=== PATIENT | female | born 1960 | race Caucasian/White ===

== ENCOUNTER → 2017-01-07 | Outpatient (CLI) | payer OTHER ==
[2015-11-11 10:46] VITALS: BP 117/74
[~2017-01-07] MED LIST: ASPI81TA44 PO; BUPR150T8 PO; CALC-31 PO; CEFU250T PO; CIPR500T94 PO; GABA-586 PO; INSU100C4 SQ; INSU100I13 SQ; INSU100I17 SQ; LAMO150T PO; LIRA0.6P2 SQ; METF10002 PO; METF500T4 PO; PARO40TA3 PO; Potassium Chloride PO; SUCR1TAB PO; SUCR1TAB35 PO; SULF1TAB24 PO; ZOLP10TA4 PO
--- NOTE | 2017-01-07 16:22 | RAD ---
CT scan of the chest without contrast 01/07/2017 Clinical history: History of pulmonary nodules with cough. Technique: Unenhanced, contiguous, 1 mm axial sections were obtained to the chest and upper abdomen. Findings: Comparison study is dated 10/31/2015. Mild atherosclerotic calcification of the thoracic aorta and its branches is noted. The thoracic aorta tapers normally. The heart is normal in size. Scattered coronary artery calcifications are seen. Small calcified hilar and mediastinal lymph nodes are noted. Multiple small calcified granulomas are seen scattered throughout both lungs. These measure 2 to 3 mm in size. Several noncalcified pulmonary nodules are seen scattered throughout both lungs particularly involving the right lower lobe. These measure 1 mm to 4 mm in size. They likely represent noncalcified granulomas. They have not significantly changed since the previous study. No new pulmonary nodule seen. No acute pulmonary infiltrate is noted. No pleural effusion or pneumothorax is seen. Images through the upper abdomen demonstrate no acute abnormality. Degenerative changes are seen involving the thoracic spine. Impression: Stable CT appearance of the pulmonary nodules as outlined above. No acute abnormality is seen.
== END | disposition home or self-care (01) ==
LOC: CT 12:51
PROVIDERS: ATTEND Physician Assistant
DX: R91.8 Other nonspecific abnormal finding of lung field (principal); E11.65 Type 2 diabetes mellitus with hyperglycemia; I70.0 Atherosclerosis of aorta; K21.9 Gastro-esophageal reflux disease without esophagitis; R05 Cough
CPT/HCPCS: 71250

== ENCOUNTER 2018-04-13 14:54 | Emergency (ER) | payer OTHER ==
[~2018-04-13] VITALS: Ht 167.6 cm; Wt 83.9 kg
[~2018-04-13 14:54] MED LIST changes: -ASPI81TA44 PO; +ASPI81TA59 PO; -LAMO150T PO; +LAMO150T2 PO; -METF10002 PO; +METF10007 PO; +METF500T16 PO; -METF500T4 PO
--- NOTE | 2018-04-13 15:48 | PHYS DOC ---
Past History Past Medical History: Anxiety, Depression, Diabetes, GERD, High Cholesterol, Other Past Surgical History: Appendectomy, Cholecystectomy, Hysterectomy, Other Smoking: Non-smoker Alcohol Use: None Drug Use: None Adult General Chief Complaint Chief Complaint: MECHANICAL FALL HPI HPI 57-year-old female presents with left knee pain. The patient was at her doctor' s office finishing her appointment when she fell. The patient began to walk and got her feet tangled up and fell to the floor. She fell straight forward and down striking her left knee and leg on the ground. The patient was helped up and was able to walk out of the office. After the patient got home, likely candidate a more. It is now difficult for her to walk due to the pain. She walks with a limp. She describes the pain as a deep cramping sensation. The pain is worse just above the kneecap. She is also noticed some swelling. The pain is radiating down her leg to the foot, mostly on the lateral side. Patient denies head injury or loss of consciousness. She has had surgery on this leg for a broken hip. She believes this hardware is proximal to her pain. Review of Systems Review of Systems Constitutional: Denies fever or chills [] Eyes: Denies change in visual acuity, redness, or eye pain [] HENT: Denies nasal congestion or sore throat [] Respiratory: Denies cough or shortness of breath [] Cardiovascular: No additional information not addressed in HPI [] GI: Denies abdominal pain, nausea, vomiting, bloody stools or diarrhea [] : Denies dysuria or hematuria [] Musculoskeletal: Left knee pain[] Integument: Denies rash or skin lesions [] Neurologic: Denies headache, focal weakness or sensory changes [] Endocrine: Denies polyuria or polydipsia [] All other systems were reviewed and found to be within normal limits, except as documented in this note. Allergies Allergies Allergies Coded Allergies Type Severity Reaction Last Updated Verified ciprofloxacin Allergy Intermediate 07/09/14 Yes niacin Allergy Intermediate 11/10/15 Yes Physical Exam Physical Exam Constitutional: Well developed, well nourished, no acute distress, non-toxic appearance. [] HENT: Normocephalic, atraumatic, bilateral external ears normal, oropharynx moist, no oral exudates, nose normal. [] Eyes: PERRLA, EOMI, conjunctiva normal, no discharge. [] Neck: Normal range of motion, no tenderness, supple, no stridor. [] Cardiovascular:Heart rate regular rhythm, no murmur [] Lungs & Thorax: Bilateral breath sounds clear to auscultation [] Abdomen: Bowel sounds normal, soft, no tenderness, no masses, no pulsatile masses. [] Skin: Warm, dry, no erythema, no rash. [] Back: No tenderness, no CVA tenderness. [] Extremities: Tenderness to palpation of the suprapatellar area of the left knee. Her ligaments are intact without laxity. Negative varus and valgus. Mild to moderate edema, mostly suprapatellar. No ecchymosis or obvious deformity.[] Neurologic: Alert and oriented X 3, normal motor function, normal sensory function, no focal deficits noted. [] Psychologic: Affect normal, judgement normal, mood normal. [] Current Patient Data Vital Signs Vital Signs Date Time Temp Pulse Resp B/P (MAP) Pulse Ox O2 Delivery O2 Flow Rate FiO2 04/13/18 15:14 98.3 90 18 97 Room Air EKG EKG [] Radiology/Procedures Radiology/Procedures [] Impressions: Left foot, 3 views, 04/13/2018: HISTORY: Fall, pain No fracture or dislocation is identified. There are mild scattered degenerative changes. Arterial calcifications are noted. There is mild subcutaneous edema. IMPRESSION: No acute bony abnormality is detected. Left knee with patella, 4 views, 04/13/2018: There is a linear lucency projected over the anterior proximal tibia at the level of the inferior aspect of the tibial tuberosity. The appearance suggests a nondisplaced fracture. No other fracture or dislocation is identified. There is mild posterior patellar spurring. IMPRESSION: Nondisplaced proximal tibial fracture at the level of the tibial tuberosity. Electronically signed by: David Davies MD (04/13/2018 4:21 PM) [facility] DICTATED AND SIGNED BY: DAVID DAVIES MD DATE: 04/13/18 0762 CC: PAO LOREDO DO; JA KEITA MD ~ Course & Med Decision Making Course & Med Decision Making Pertinent Labs and Imaging studies reviewed. (See chart for details) The patient has a nondisplaced, proximal tibia fracture. We will place her in a knee immobilizer and have her nonweightbearing with crutches until she sees orthopedic surgeon. I will provide contact information for the orthopedic group in her discharge instructions. I will also discharge the patient with a short course of [place] 5/325 for pain. She is stable for discharge at this time. [] Dragon Disclaimer Dragon Disclaimer This electronic medical record was generated, in whole or in part, using a voice recognition dictation system. Departure Departure: Referrals: JA KEITA MD (PCP) Scripts Hydrocodone Bit/Acetaminophen (NORCO 5-325 TABLET) 1 Each Tablet 1 TAB PO PRN Q6HRS PRN for PAIN, #10 TAB 0 Refills Prov: PAO LOREDO DO 04/13/18 PAO LOREDO DO Apr 13, 2018 15:48
--- NOTE | 2018-04-13 16:24 | RAD ---
Left foot, 3 views, 04/13/2018: HISTORY: Fall, pain No fracture or dislocation is identified. There are mild scattered degenerative changes. Arterial calcifications are noted. There is mild subcutaneous edema. IMPRESSION: No acute bony abnormality is detected. Left knee with patella, 4 views, 04/13/2018: There is a linear lucency projected over the anterior proximal tibia at the level of the inferior aspect of the tibial tuberosity. The appearance suggests a nondisplaced fracture. No other fracture or dislocation is identified. There is mild posterior patellar spurring. IMPRESSION: Nondisplaced proximal tibial fracture at the level of the tibial tuberosity. Electronically signed by: David Davies MD (04/13/2018 4:21 PM) [facility]
[2018-04-13 16:32] VITALS: BP 155/94
[2018-04-13] MEDS ORDERED: HYDROcodone/APAP 5/325MG 1 TAB TABLET PO ONE (16:45)
[2018-04-13] MEDS ORDERED: HYDR-971 PO (16:52)
== END 2018-04-13 17:05 | disposition home or self-care (01) ==
LOC: ER 14:54
DX: S82.155A Nondisplaced fracture of left tibial tuberosity, initial encounter for closed fracture (principal); E11.9 Type 2 diabetes mellitus without complications; K21.9 Gastro-esophageal reflux disease without esophagitis; E78.00 Pure hypercholesterolemia, unspecified; Z88.1 Allergy status to other antibiotic agents; W18.09XA Striking against other object with subsequent fall, initial encounter; Y93.89 Activity, other specified; Y92.89 Other specified places as the place of occurrence of the external cause; Y99.8 Other external cause status
CPT/HCPCS: 29505; 73564; 73630; 99284

== ENCOUNTER → 2018-06-09 | Outpatient (CLI) | payer OTHER ==
[~2018-06-09] MED LIST changes: +HYDR-3165 PO
--- NOTE | 2018-06-09 10:43 | RAD ---
EXAM: CT Chest without IV contrast CLINICAL HISTORY: LUNG NODULE FOLLOW UP COMPARISON: 01/07/17 CT abdomen 01/08/2013 TECHNIQUE: CT of the chest without intravenous contrast. Axial, coronal and sagittal reformatted images were generated. ---PQRS compliance statement - One or more of the following individualized dose reduction techniques were utilized for this study: 1. Automated exposure control 2. Adjustment of the mA and/or kV according to patient size 3. Use of iterative reconstruction technique--- FINDINGS: Lack of intravenous contrast limits evaluation of solid organs, vasculature, and lymph nodes. Chest: Heart is not enlarged. Coronary artery calcifications are seen. No pericardial effusion. No pleural effusion or pneumothorax. No thoracic lymphadenopathy by size criteria although prominent mediastinal lymph nodes are seen. Multiple bilateral lung nodules are seen measuring up to 6 mm. Specifically a lingular lung nodule measures 6 mm (series 2 image 132) however this is stable to 01/08/2013. Visualized Upper abdomen: There is very subtle nodularity of the liver. Although this may be physiologic for this patient this may also be seen with hepatic cirrhosis. Otherwise, the visualized upper abdomen is grossly unremarkable. Bones: Osseous structures are grossly stable. No definite aggressive osseous lesion is identified. IMPRESSION: 1. The bilateral lung nodules are grossly stable. 2. Nodularity of the liver, although may be physiologic, hepatic cirrhosis with have similar appearance. 3. Atherosclerotic calcifications of the coronary arteries. Electronically signed by: Kevan Aguilar MD (06/09/2018 10:40 AM) [facility]
== END | disposition home or self-care (01) ==
LOC: CT 09:24
PROVIDERS: ATTEND Internal Medicine Pulmonary Disease
DX: R91.8 Other nonspecific abnormal finding of lung field (principal); I25.10 Atherosclerotic heart disease of native coronary artery without angina pectoris
CPT/HCPCS: 71250

== ENCOUNTER 2018-08-14 19:57 | Inpatient (IN) | payer OTHER ==
[~2018-08-14] VITALS: Ht 167.6 cm; Wt 91.8 kg
--- NOTE | 2018-08-14 20:49 | ED.ADGEN ---
Past History Past Medical History: Anxiety, Depression, Diabetes, GERD, High Cholesterol, Other Past Surgical History: Appendectomy, Cholecystectomy, Hysterectomy, Other Smoking: Non-smoker Alcohol Use: None Drug Use: None Adult General Chief Complaint Chief Complaint ".. I ve had more than 4 days... fever, cough..... I am coughing so much.. my chest hurts...miserable... my grand daughter been ill .. It really started tuesday..and it has just gotten worse..".." I just hurt all over..." HPI HPI Patient is a 58 year old female who presents with cough and wheezing the last 4 days. Pt complaints fever, chest discomfort from a non productive cough, generalized malaise and arthralgia. Pt. grand daughter recently sick. No recent travel. No hx of immunosuppression. Pt. has history of anxiety, depression, diabetes, GERD, elevated cholesterol, coronary artery disease, arthritis, CHF. Pt.normally follow s with Dr. Lund.. Review of Systems Review of Systems Constitutional: Complaints of fever or chills [] Eyes: Denies change in visual acuity, redness, or eye pain [] HENT: Denies nasal congestion or sore throat [] Respiratory: Complaints cough , chest pain, and shortness of breath [] Cardiovascular: No additional information not addressed in HPI [] GI: Denies abdominal pain, nausea, vomiting, bloody stools or diarrhea [] : Denies dysuria or hematuria [] Musculoskeletal: Denies back pain or joint pain []Complaints of generalized myalgia and arthralgia. Integument: Denies rash or skin lesions [] Neurologic: Denies headache, focal weakness or sensory changes [] Endocrine: Denies polyuria or polydipsia [] All other systems were reviewed and found to be within normal limits, except as documented in this note. Family History Family History Non-contributory Current Medications Current Medications Current Medications Medications (Trade) Dose Ordered Sig/Oscar Start Time Stop Time Status Last Admin Dose Admin Furosemide (Lasix) 40 mg 1X ONCE 08/14/18 22:45 08/14/18 22:46 DC 08/14/18 22:40 40 MG Lactated Ringer's 1,000 ml @ 1,000 mls/hr Q1H 08/14/18 21:00 08/14/18 21:59 DC 08/14/18 21:09 1,000 MLS/HR See nursing for home meds Allergies Allergies Allergies Coded Allergies Type Severity Reaction Last Updated Verified ciprofloxacin Allergy Intermediate 07/09/14 Yes niacin Allergy Intermediate 11/10/15 Yes Physical Exam Physical Exam Constitutional: Moderately acute distress, non-toxic appearance. [] HENT: Normocephalic, atraumatic, bilateral external ears normal, oropharynx moist, mild injection of pharynx, no oral exudates, nose clear rhinorrhea[] Eyes: PERRLA, EOMI, conjunctiva normal, no discharge. [] Neck: Normal range of motion, no tenderness, supple, no stridor. [] JVD in sitting position Cardiovascular: Tachycardia Heart rate regular rhythm, no murmur []PMI to the left. Lungs & Thorax: Bilateral breath sounds at apexes with scattered wheezes and basilar crackles on auscultation [] Abdomen: Bowel sounds normal, soft, no tenderness, no masses, no pulsatile masses. []Obese. Old surgery scars. Skin: Warm, dry, no erythema, no rash. [] Back: No tenderness, no CVA tenderness. [] Extremities: No tenderness, no cyanosis, no clubbing, ROM intact, ankle edema. [ ] Arthritic changes. Neurologic: Alert and oriented X 3, normal motor function, normal sensory function, no focal deficits noted. [] Psychologic: Affect anxious ,judgement normal, mood depressed Current Patient Data Vital Signs Vital Signs Date Time Temp Pulse Resp B/P (MAP) Pulse Ox O2 Delivery O2 Flow Rate FiO2 08/14/18 23:30 99.1 94 18 148/69 (95) 97 Nasal Cannula 2.0 Lab Results Laboratory Tests Test 08/14/18 20:41 08/14/18 20:45 08/14/18 23:00 Glucose (Fingerstick) 195 mg/dL (70-99) H White Blood Count 10.4 x10^3/uL (4.0-11.0) Red Blood Count 3.48 x10^6/uL (3.50-5.40) L Hemoglobin 10.4 g/dL (12.0-15.5) L Hematocrit 31.5 % (36.0-47.0) L Mean Corpuscular Volume 91 fL (79-100) Mean Corpuscular Hemoglobin 30 pg (25-35) Mean Corpuscular Hemoglobin Concent 33 g/dL (31-37) Red Cell Distribution Width 14.5 % (11.5-14.5) Platelet Count 150 x10^3/uL (140-400) Neutrophils (%) (Auto) 84 % (31-73) H Lymphocytes (%) (Auto) 5 % (24-48) L Monocytes (%) (Auto) 11 % (0-9) H Eosinophils (%) (Auto) 0 % (0-3) Basophils (%) (Auto) 0 % (0-3) Neutrophils # (Auto) 8.8 x10^3uL (1.8-7.7) H Lymphocytes # (Auto) 0.5 x10^3/uL (1.0-4.8) L Monocytes # (Auto) 1.1 x10^3/uL (0.0-1.1) Eosinophils # (Auto) 0.0 x10^3/uL (0.0-0.7) Basophils # (Auto) 0.0 x10^3/uL (0.0-0.2) Prothrombin Time 11.1 SEC (9.4-11.4) Prothrombin Time INR 1.1 (0.9-1.1) PTT 29 SEC (23-33) D-Dimer (Sadie) 1.07 mg/L (0.00-0.50) H Sodium Level 136 mmol/L (136-145) Potassium Level 4.3 mmol/L (3.5-5.1) Chloride Level 101 mmol/L (98-107) Carbon Dioxide Level 28 mmol/L (21-32) Anion Gap 7 (6-14) Blood Urea Nitrogen 26 mg/dL (7-20) H Creatinine 1.9 mg/dL (0.6-1.0) H Estimated GFR (Cockcroft-Gault) 27.0 Glucose Level 222 mg/dL (70-99) H Lactic Acid Level 1.2 mmol/L (0.4-2.0) Calcium Level 8.7 mg/dL (8.5-10.1) Magnesium Level 2.0 mg/dL (1.8-2.4) Total Bilirubin 0.5 mg/dL (0.2-1.0) Direct Bilirubin 0.2 mg/dL (0.0-0.2) Aspartate Amino Transferase (AST) 22 U/L (15-37) Alanine Aminotransferase (ALT) 25 U/L (14-59) Alkaline Phosphatase 51 U/L (46-116) Troponin I Quantitative 0.024 ng/mL (0-0.055) FR-Xms-Y-Type Natriuretic Peptide 2284 pg/mL (0-124) H Total Protein 7.9 g/dL (6.4-8.2) Albumin 3.6 g/dL (3.4-5.0) Lipase 87 U/L (73-393) Influenza Type A (Rapid) Positive (NEGATIVE) Influenza Type B (Rapid) Negative (NEGATIVE) Group A Streptococcus Rapid Negative (NEGATIVE) Urine Collection Type Void Urine Color Yellow Urine Clarity Hazy Urine pH 5.5 Urine Specific [place] 1.020 Urine Protein 100 mg/dl (NEG-TRACE) Urine Glucose (UA) 100 mg/dL (NEG) Urine Ketones (Stick) Neg mg/dL (NEG) Urine Blood Large (NEG) Urine Nitrite Neg (NEG) Urine Bilirubin Neg (NEG) Urine Urobilinogen Dipstick 0.2 mg/dL (0.2 mg/dL) Urine Leukocyte Esterase Neg (NEG) Urine RBC 1-2 /HPF (0-2) Urine WBC 1-4 /HPF (0-4) Urine Squamous Epithelial Cells Mod /LPF Urine Bacteria 0 /HPF (0-FEW) EKG EKG My interpretation EKG shows a sinus tachycardia at 103 bpm. Does have leftward axis and some nonspecific T-wave changes. But no findings acute STEMI of contralateral changes.[] Radiology/Procedures Radiology/Procedures My interpretation chest x-ray shows somewhat generous cardiac silhouette. No large consolidations or infiltrates. No free air in the diaphragm. Does have degenerative joint changes. Does have some scattered nodules.[] Course & Med Decision Making Course & Med Decision Making Pertinent Labs and Imaging studies reviewed. (See chart for details) Heart score is 5. Pt. admitted to Dr. Lund for further eval and tx. . Clinically she appears to have influenza- however beyond time for treatment. Strep and flu pending. Pt. [] Final Impression Final Impression 1.[]Chest Pain- appears to be chest wall 2. CHF- BNP 2284 3. DM 222 glucose 4. Elevated D-dimer 1.07 5. Elevated Creat. 1.9 6. Influ. A + Dragon Disclaimer Thalia Disclaimer This electronic medical record was generated, in whole or in part, using a voice recognition dictation system. Discharge Summary Visit Information Final Diagnosis Problems Medical Problems: (1) Chest pain Status: Acute Brief Hospital Course Allergies Allergies Coded Allergies Type Severity Reaction Last Updated Verified ciprofloxacin Allergy Intermediate 07/09/14 Yes niacin Allergy Intermediate 11/10/15 Yes Vital Signs Vital Signs Date Time Temp Pulse Resp B/P (MAP) Pulse Ox O2 Delivery O2 Flow Rate FiO2 08/14/18 23:30 99.1 94 18 148/69 (95) 97 Nasal Cannula 2.0 Lab Results Laboratory Tests Test 08/14/18 20:41 08/14/18 20:45 08/14/18 23:00 Glucose (Fingerstick) 195 mg/dL (70-99) White Blood Count 10.4 x10^3/uL (4.0-11.0) Red Blood Count 3.48 x10^6/uL (3.50-5.40) Hemoglobin 10.4 g/dL (12.0-15.5) Hematocrit 31.5 % (36.0-47.0) Mean Corpuscular Volume 91 fL (79-100) Mean Corpuscular Hemoglobin 30 pg (25-35) Mean Corpuscular Hemoglobin Concent 33 g/dL (31-37) Red Cell Distribution Width 14.5 % (11.5-14.5) Platelet Count 150 x10^3/uL (140-400) Neutrophils (%) (Auto) 84 % (31-73) Lymphocytes (%) (Auto) 5 % (24-48) Monocytes (%) (Auto) 11 % (0-9) Eosinophils (%) (Auto) 0 % (0-3) Basophils (%) (Auto) 0 % (0-3) Neutrophils # (Auto) 8.8 x10^3uL (1.8-7.7) Lymphocytes # (Auto) 0.5 x10^3/uL (1.0-4.8) Monocytes # (Auto) 1.1 x10^3/uL (0.0-1.1) Eosinophils # (Auto) 0.0 x10^3/uL (0.0-0.7) Basophils # (Auto) 0.0 x10^3/uL (0.0-0.2) Prothrombin Time 11.1 SEC (9.4-11.4) Prothromb Time International Ratio 1.1 (0.9-1.1) Activated Partial Thromboplast Time 29 SEC (23-33) D-Dimer (Sadie) 1.07 mg/L (0.00-0.50) Sodium Level 136 mmol/L (136-145) Potassium Level 4.3 mmol/L (3.5-5.1) Chloride Level 101 mmol/L (98-107) Carbon Dioxide Level 28 mmol/L (21-32) Anion Gap 7 (6-14) Blood Urea Nitrogen 26 mg/dL (7-20) Creatinine 1.9 mg/dL (0.6-1.0) Estimated GFR (Cockcroft-Gault) 27.0 Glucose Level 222 mg/dL (70-99) Lactic Acid Level 1.2 mmol/L (0.4-2.0) Calcium Level 8.7 mg/dL (8.5-10.1) Magnesium Level 2.0 mg/dL (1.8-2.4) Total Bilirubin 0.5 mg/dL (0.2-1.0) Direct Bilirubin 0.2 mg/dL (0.0-0.2) Aspartate Amino Transf (AST/SGOT) 22 U/L (15-37) Alanine Aminotransferase (ALT/SGPT) 25 U/L (14-59) Alkaline Phosphatase 51 U/L (46-116) Troponin I Quantitative 0.024 ng/mL (0-0.055) LE-Xyq-T-Type Natriuretic Peptide 2284 pg/mL (0-124) Total Protein 7.9 g/dL (6.4-8.2) Albumin 3.6 g/dL (3.4-5.0) Lipase 87 U/L (73-393) Influenza Type A (Rapid) Positive (NEGATIVE) Influenza Type B (Rapid) Negative (NEGATIVE) Group A Streptococcus Rapid Negative (NEGATIVE) Urine Collection Type Void Urine Color Yellow Urine Clarity Hazy Urine pH 5.5 Urine Specific [place] 1.020 Urine Protein 100 mg/dl (NEG-TRACE) Urine Glucose (UA) 100 mg/dL (NEG) Urine Ketones (Stick) Neg mg/dL (NEG) Urine Blood Large (NEG) Urine Nitrite Neg (NEG) Urine Bilirubin Neg (NEG) Urine Urobilinogen Dipstick 0.2 mg/dL (0.2 mg/dL) Urine Leukocyte Esterase Neg (NEG) Urine RBC 1-2 /HPF (0-2) Urine WBC 1-4 /HPF (0-4) Urine Squamous Epithelial Cells Mod /LPF Urine Bacteria 0 /HPF (0-FEW) Brief Hospital Course Ms. Muñoz is a 58 old female who presented with chest wall pain and found to be Influ. A+. Admitted to Dr. Lund. Discharge Information Condition at Discharge: Improved, Stable Dischare Medications Current Medications Lactated Ringer's 1,000 ml @ 1,000 mls/hr Q1H IV Last administered on at 21:09; Admin Dose 1,000 MLS/HR; Start 08/14/18 at 21:00; Stop 08/14/18 at 21:59; Status DC Furosemide (Lasix) 40 mg 1X ONCE IVP Last administered on 08/14/18at 22:40; Admin Dose 40 MG; Start 08/14/18 at 22:45; Stop 08/14/18 at 22:46; Status DC Active Scripts Active [Potassium Chloride] 10 MEQ Capsule.er 20 Meq PO BID Wellbutrin Sr (Bupropion Hcl) 150 Mg Tablet.sa 150 Mg PO BID Reported Novolog Flexpen (Insulin Aspart) 100 Unit/1 Ml Insuln.pen 10 Unit SQ TIDAC last dose with lunch next dose due with supper Gabapentin (Gabapentin) 300 Mg Capsule 300 Mg PO BID last dose this morning next dose due this afternoon Children's Aspirin (Aspirin) 81 Mg Tab.chew 81 Mg PO DAILY last dose this morning next dose tomorrow Lantus Solostar (Insulin Glargine,Hum.rec.anlog) 100 Unit/1 Ml Insuln.pen 33 Unit SQ HS last dose last night next dose due tonight Paroxetine Hcl 40 Mg Tablet 30 Mg PO DAILY last dose this morning next dose tomorrow Calcium 500 + D Tablet (Calcium Carbonate/Vitamin D3) 1 Each Tablet 1 Each PO BID last dose this morning next dose tomorrow morning Dragon Disclaimer This chart was dictated in whole or in part using Voice Recognition software in a busy, high-work load, and often noisy Emergency Department environment. It may contain unintended and wholly unrecognized errors or omissions. RICHARD LANGE MD Aug 14, 2018 20:49
[2018-08-14] MEDS ORDERED: IV RINGERS SOLUTION,LACTATED 1,000 ML IV SCH (21:00)
[2018-08-14 21:19] LABS: BASO % 0 % (0-3); EOS % 0 % (0-3); HEMATOCRIT 31.5 % (36.0-47.0); HEMOGLOBIN 10.4 g/dL (12.0-15.5); LYMPH # 0.5 x10^3/uL (1.0-4.8); LYMPH % 5 % (24-48); MEAN CORPUSCULAR HEMOGLOBIN 30 pg (25-35); MEAN CORPUSCULAR HGB CONC 33 g/dL (31-37); MEAN CORPUSCULAR VOLUME 91 fL (79-100); MONO # 1.1 x10^3/uL (0.0-1.1); MONO % 11 % (0-9); NEUT # 8.8 x10^3uL (1.8-7.7); NEUT % 84 % (31-73); PLATELET COUNT 150 x10^3/uL (140-400); RED BLOOD COUNT 3.48 x10^6/uL (3.50-5.40); RED CELL DISTRIBUTION WIDTH 14.5 % (11.5-14.5); WHITE BLOOD COUNT 10.4 x10^3/uL (4.0-11.0)
[2018-08-14 21:41] LABS: ALBUMIN 3.6 g/dL (3.4-5.0); CALCIUM 8.7 mg/dL (8.5-10.1); CREATININE 1.9 mg/dL (0.6-1.0); DIRECT BILIRUBIN 0.2 mg/dL (0.0-0.2); POTASSIUM 4.3 mmol/L (3.5-5.1); TOTAL BILIRUBIN 0.5 mg/dL (0.2-1.0); TOTAL PROTEIN 7.9 g/dL (6.4-8.2)
[2018-08-14] MEDS ORDERED: FUROSEMIDE 40 MG/4 ML VIAL IVP ONE (22:45)
[2018-08-14 23:14] LABS: INFLUENZA A PATIENT POSITIVE (NEGATIVE); INFLUENZA B PATIENT NEGATIVE (NEGATIVE)
--- NOTE | 2018-08-14 23:20 | RAD ---
Examination: CHEST PA LATERAL History: Congestion, cough Comparison/Correlation: 06/09/2018 CT chest without contrast Findings: PA and lateral views of chest were obtained. Heart size and perivascular normal. No infiltrate or effusion. Small pulmonary nodules are stable. No suspicious new or dominant pulmonary nodule in the interval. Bony structures are unremarkable. Impression: Pulmonary nodules again seen. No new infiltrate. Electronically signed by: Munir Mantilla MD (08/14/2018 11:15 PM) [facility]
[2018-08-15 00:09] VITALS: BP 136/70
[2018-08-15 00:19] LABS: BILIRUBIN,URINE NEG (NEG); CLARITY,URINE HAZY; COLOR,URINE YELLOW; GLUCOSE,URINE 100 mg/dL (NEG); NITRITE,URINE NEG (NEG); UROBILINOGEN,URINE 0.2 mg/dL (0.2 mg/dL)
[2018-08-15 00:20] LABS: BACTERIA,URINE 0 /HPF (0-FEW); SQUAMOUS EPITHELIAL CELL,UR MOD /LPF
[2018-08-15] MEDS ORDERED: LAMO200T25 PO (03:05)
[2018-08-15] MEDS ORDERED: FERR325T14 PO (03:18)
[2018-08-15] MEDS ORDERED: ALBU2.5V8 INH (03:27)
[2018-08-15] MEDS ORDERED: MAGN250T10 PO (03:27)
[2018-08-15] MEDS ORDERED: ATOR10TA60 PO (03:27)
[2018-08-15] MEDS ORDERED: CYCL1DRO EACHEYE (03:27)
[2018-08-15] MEDS ORDERED: PANT40TA5 PO (03:27)
[2018-08-15] MEDS ORDERED: ERGO500027 PO (03:27)
[2018-08-15 05:10] VITALS: BP 124/72
[2018-08-15] MEDS ORDERED: ALBUTEROL SULFATE 2.5 MG/3 ML NEBU. INH PRN ×2 (08:45→09:15)
[2018-08-15] MEDS ORDERED: LORA0.5T PO (08:56)
[2018-08-15] MEDS ORDERED: PARoxetine 20 MG TABLET PO SCH (09:00)
[2018-08-15] MEDS ORDERED: MAGNESIUM OXIDE 400 MG TABLET PO SCH ×2 (09:00→21:00)
[2018-08-15] MEDS ORDERED: buPROPion SR 150 MG TABLET.SA PO SCH (09:00)
[2018-08-15] MEDS ORDERED: POTASSIUM CHLORIDE 20 MEQ TABLET.ER. PO SCH (09:00)
[2018-08-15] MEDS ORDERED: DEXTROSE 50% 25 GM / 50ML DISP.SYRIN. IV PRN (09:15)
[2018-08-15] MEDS ORDERED: IPRATRPIUM/ALBUTEROL 0.5/2.5MG 3 ML NEBU. ONE (09:32)
[2018-08-15] MEDS: FERROUS SULFATE 325 MG TABLET. PO SCH ×2 (10:05→20:24)
[2018-08-15] MEDS: AZITHROMYCIN 250 MG TABLET. PO SCH (10:05)
[2018-08-15] MEDS: ASPIRIN 81 MG TAB.CHEW PO SCH (10:05)
[2018-08-15] MEDS: OSELTAMIVIR 75 MG CAPSULE PO SCH ×2 (10:05→20:25)
[2018-08-15] MEDS: lamoTRIgine 100 MG TABLET. PO SCH (10:05)
[2018-08-15] MEDS: CALCIUM CARB/VIT D3 500/200 TABLET PO SCH ×2 (10:05→17:26)
[2018-08-15] MEDS: GABAPENTIN 300 MG CAPSULE. PO SCH ×2 (10:05→20:25)
[2018-08-15] MEDS: PANTOPRAZOLE 40 MG TABLET. PO SCH (10:05)
[2018-08-15] MEDS: LORazepam 0.5 MG TABLET PO SCH ×3 (10:05→20:24)
[2018-08-15] MEDS: cycloSPORINE 0.05% OPTH 1 DROP DROPERETTE OU SCH ×2 (10:06→20:25)
[2018-08-15] MEDS: IPRATRPIUM/ALBUTEROL 0.5/2.5MG 3 ML NEBU. NEB SCH ×3 (10:20→19:13)
[2018-08-15] MEDS ORDERED: PARO20TA3 PO (10:22)
[2018-08-15] MEDS ORDERED: ACETAMINOPHEN 325 MG TABLET PO PRN (11:00)
[2018-08-15 11:27] VITALS: BP 117/65
[2018-08-15] MEDS: INSULIN LISPRO 300 UNITS/3 ML INSULN.PEN. SQ SCH ×4 (12:10→17:30)
[2018-08-15] MEDS: HEPARIN for SUB-Q USE 5,000 UNIT/ML VIAL. SQ SCH ×2 (14:52→22:00)
[2018-08-15 15:46] VITALS: BP 96/60
[2018-08-15] MEDS ORDERED: LINA5TAB4 PO (18:37)
[2018-08-15 20:48] VITALS: BP 108/66
[2018-08-15] MEDS ORDERED: INSULIN GLARGINE 300 UNITS/3 ML INSULN.PEN. SQ SCH (21:00)
[2018-08-15] MEDS ORDERED: ATORVASTATIN CALCIUM 10 MG TABLET. PO SCH (21:00)
[2018-08-15 23:23] VITALS: BP 117/73
[2018-08-16 05:15] VITALS: BP 107/69
[2018-08-16] MEDS: IPRATRPIUM/ALBUTEROL 0.5/2.5MG 3 ML NEBU. NEB SCH ×2 (05:17→09:43)
[2018-08-16] MEDS: HEPARIN for SUB-Q USE 5,000 UNIT/ML VIAL. SQ SCH (05:28)
[2018-08-16] MEDS: FERROUS SULFATE 325 MG TABLET. PO SCH (08:33)
[2018-08-16] MEDS: AZITHROMYCIN 250 MG TABLET. PO SCH (08:33)
[2018-08-16] MEDS: ASPIRIN 81 MG TAB.CHEW PO SCH (08:33)
[2018-08-16] MEDS: LORazepam 0.5 MG TABLET PO SCH ×2 (08:33→13:44)
[2018-08-16] MEDS: lamoTRIgine 100 MG TABLET. PO SCH (08:33)
[2018-08-16] MEDS: CALCIUM CARB/VIT D3 500/200 TABLET PO SCH (08:33)
[2018-08-16] MEDS: GABAPENTIN 300 MG CAPSULE. PO SCH (08:33)
[2018-08-16] MEDS: PANTOPRAZOLE 40 MG TABLET. PO SCH (08:33)
[2018-08-16] MEDS: OSELTAMIVIR 75 MG CAPSULE PO SCH (08:33)
[2018-08-16] MEDS: cycloSPORINE 0.05% OPTH 1 DROP DROPERETTE OU SCH (08:34)
[2018-08-16] MEDS: INSULIN LISPRO 300 UNITS/3 ML INSULN.PEN. SQ SCH ×3 (08:43→13:04)
[2018-08-16] MEDS ORDERED: PARoxetine 10 MG TABLET PO SCH (09:00)
[2018-08-16 11:40] LABS: CALCIUM 8.6 mg/dL (8.5-10.1); CREATININE 1.9 mg/dL (0.6-1.0); POTASSIUM 3.9 mmol/L (3.5-5.1)
[2018-08-16 11:57] VITALS: BP 117/71
[2018-08-16] MEDS ORDERED: INSULIN LISPRO 300 UNITS/3 ML INSULN.PEN. SQ SCH (12:00)
--- NOTE | 2018-08-16 13:03 | RAD ---
Ventilation/perfusion lung scan, 08/16/2018: HISTORY: Positive d-dimer The ventilation study was performed utilizing 19 mCi of xenon-133. Activity in the lungs is minimally heterogeneous. There is minimal retention of activity on the washout phase. Perfusion imaging was performed utilizing 5.5 mCi of technetium 99m MAA. A similar pattern of activity is present in both lungs. No significant unmatched or segmental perfusion defects are seen. IMPRESSION: There are no VQ findings to suggest pulmonary emboli. Electronically signed by: David Davies MD (08/16/2018 12:58 PM) [facility]
[2018-08-16] MEDS ORDERED: OSEL75CA PO (14:32)
[2018-08-16 14:52] VITALS: BP 109/68
--- NOTE | 2018-08-16 18:30 | DS ---
DATE OF DISCHARGE: 08/16/2018 HOSPITAL COURSE: This is a 58-year-old female came in through the Emergency Room having severe problems with cough and wheezing for the last 4 days prior to admission. The patient was noted to have influenza A. The patient was placed on Tamiflu. She was slightly anemic at 10.4 and 31. The patient's creatinine was also elevated up to 1.9. She is a diabetic. She did have an elevated BNP, but the x-ray did not show any signs of congestive heart failure. The patient had an elevated D-dimer. Her V/Q scan was negative. The patient made excellent progress with the use of the Tamiflu, increased her premeal injections of her short-acting insulin. The patient made excellent progress. Her chest x-ray demonstrated nothing more than some pulmonary nodules that she has had before. There were no signs of infiltrate or fluid there. The patient spent approximately one hour discussing her lab results and x-rays reports with her. She is to follow up on her blood sugars. She was quite tearful at times, a little bit overwhelmed. I think with all the medical issues at hand, but overall she was feeling much better at the time of discharge. IMPRESSION: Therefore of, Influenza A, anemia of chronic disease, type 2 diabetes, poorly controlled. The patient will be discharged home. She will continue on her Tamiflu as well as some breathing treatments at home. 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 JA KEITA MD DR: JOYCE/dane JOB#: [id number] / [id number]
[2018-08-16] MEDS ORDERED: LACTOBACILLUS RHAMNOSUS GG 1 CAPSULE. PO SCH (21:00)
--- NOTE | 2018-08-18 16:02 | EKG ---
[address] [address] Test Date: 2018-08-14 Test Time: 21:20:16 Pat Name: RIMA PERALTA Department: Room: Gender: F [facility] Office Manager: : 1960 Requested By: RICHARD LANGE Order Number: [id number] Reading MD: Measurements Intervals [place] Rate: 103 P: 51 [place]: 156 QRS: -21 QRSD: 84 T: 77 QT: 306 QTc: 403 Interpretive Statements SINUS TACHYCARDIA LEFTWARD AXIS T ABNORMALITY IN HIGH LATERAL LEADS ABNORMAL ECG RI6.01 Unconfirmed report No previous ECG available for comparison
[2018-08-21] MEDS ORDERED: CHOLECALCIFEROL (VITAMIN D3) 50,000 UNIT CAPSULE PO SCH (09:00)
== END 2018-08-16 15:30 | disposition home or self-care (01) | DRG 195 ==
LOC: ER 19:57 → 1 SOUTH 23:51
PROVIDERS: ADMIT Family Medicine; ATTEND Family Medicine
DX: J10.1 Influenza due to other identified influenza virus with other respiratory manifestations (principal); D63.8 Anemia in other chronic diseases classified elsewhere; E11.65 Type 2 diabetes mellitus with hyperglycemia; E78.00 Pure hypercholesterolemia, unspecified; I25.10 Atherosclerotic heart disease of native coronary artery without angina pectoris; I50.9 Heart failure, unspecified; K21.9 Gastro-esophageal reflux disease without esophagitis; Z90.49 Acquired absence of other specified parts of digestive tract; Z90.710 Acquired absence of both cervix and uterus; F32.9 Major depressive disorder, single episode, unspecified; F41.9 Anxiety disorder, unspecified; M19.90 Unspecified osteoarthritis, unspecified site; Z88.1 Allergy status to other antibiotic agents; Z88.8 Allergy status to other drugs, medicaments and biological substances; N18.3 Chronic kidney disease, stage 3 (moderate)
CPT/HCPCS: 36415; 71046; 78582; 80048; 80076; 81001; 82947; 83605; 83690; 83735; 83880; 84443; 84484; 85025; 85379; 85610; 85730; 87040; 87070; 87804; 87880; 90471; 90756; 93005; 94640; 96361; 96374; A9540; A9558; J0456; J1644; J1815; J1940; J7120; J7620; 99285-25; Q2035

== ENCOUNTER → 2018-10-12 | Outpatient (CLI) | payer OTHER ==
[~2018-10-12] MED LIST changes: +ALBU2.5V8 INH; +ATOR10TA60 PO; +CYCL1DRO EACHEYE; +ERGO500027 PO; +FERR325T14 PO; +LAMO200T25 PO; +LINA5TAB4 PO; +LORA0.5T PO; +MAGN250T10 PO; +OSEL75CA PO; +PANT40TA5 PO; +PARO20TA3 PO
--- NOTE | 2018-10-12 15:14 | RAD ---
Renal ultrasound 10/12/2018 INDICATION: Chronic renal disease, stage III. COMPARISON STUDY: Renal ultrasound March 05, 2015. Discussion: The right kidney measures 12.1 cm in length. Cortical thickness measures approximately 1.4 cm. Mild right hydronephrosis is noted. The appearance is similar to prior study. There is a 1.5 cm simple appearing cyst involving the medial kidney. No other focal renal lesions are seen. No nephrolithiasis is identified. Left kidney is grossly normal in appearance measuring 10.8 cm in length. No hydronephrosis, nephrolithiasis, or focal renal lesion is seen in the left. The bladder is unremarkable in appearance and bilateral ureteral jets are noted. IMPRESSION: 1. Mild right hydronephrosis, uncertain etiology, but stable since comparison study. 2. 1.5 cm simple appearing right renal cyst. Electronically signed by: Go Underwood MD (10/12/2018 3:11 PM) [id number]
== END | disposition home or self-care (01) ==
LOC: US 12:45
PROVIDERS: ATTEND Internal Medicine Nephrology
DX: I12.9 Hypertensive chronic kidney disease with stage 1 through stage 4 chronic kidney disease, or unspecified chronic kidney disease (principal); E11.22 Type 2 diabetes mellitus with diabetic chronic kidney disease; N18.3 Chronic kidney disease, stage 3 (moderate); N13.30 Unspecified hydronephrosis; N28.1 Cyst of kidney, acquired
CPT/HCPCS: 76770

== ENCOUNTER → 2019-06-20 | Outpatient (CLI) | payer OTHER ==
[~2019-06-20] MED LIST changes: -LAMO150T2 PO; +LAMO150T4 PO
--- NOTE | 2019-06-20 12:31 | RAD ---
Bilateral renal ultrasound compared to similar study dated October 12, 2018 for chronic kidney disease, stage III, right hydronephrosis. TECHNIQUE AND FINDINGS: Real-time grayscale and color Doppler evaluation of the kidneys and urinary bladder is performed. The right kidney measures 11.8 x 4.0 x 6.1 cm and the left measures 12.1 x 4.0 x 5.2 cm. The right kidney is notable for distended renal pelvis, however there is no calyceal dilatation, and this is distinctly improved from the prior study which demonstrated mild hydronephrosis. Also redemonstrated in the right kidney is a 1.8 cm simple cyst. Left kidney is grossly unremarkable. There is normal color flow to both kidneys. Urinary bladder is fluid distended and grossly unremarkable and bilateral ureteral jets are present. Impression: 1. Improved right hydronephrosis, with absence of calyceal dilatation on the current examination, but persistent dilated renal pelvis. This may represent an extrarenal pelvis, however given the history of hydronephrosis, this may represent improved but persistent pathological dilatation of the renal pelvis (ie minimal hydronephrosis) as well. Electronically signed by: Goldy Salmeron MD (06/20/2019 12:28 PM) [id number]
== END | disposition home or self-care (01) ==
LOC: US 07:47
PROVIDERS: ATTEND Nurse Practitioner Adult Health
DX: N28.1 Cyst of kidney, acquired (principal); N28.89 Other specified disorders of kidney and ureter; N13.30 Unspecified hydronephrosis; N18.3 Chronic kidney disease, stage 3 (moderate)
CPT/HCPCS: 76770

== ENCOUNTER → 2019-08-10 | Outpatient (CLI) | payer OTHER ==
[2019-08-10 15:27] LABS: HEMATOCRIT 36.1 % (36.0-47.0)
[2019-08-10 15:34] LABS: ALBUMIN 3.6 g/dL (3.4-5.0); CALCIUM 9.1 mg/dL (8.5-10.1); CREATININE 1.6 mg/dL (0.6-1.0); GFR 32.8; PHOSPHORUS 3.9 mg/dL (2.6-4.7); POTASSIUM 3.7 mmol/L (3.5-5.1)
== END | disposition home or self-care (01) ==
LOC: LAB 14:49
PROVIDERS: ATTEND Nurse Practitioner Adult Health
DX: E11.21 Type 2 diabetes mellitus with diabetic nephropathy (principal); I12.9 Hypertensive chronic kidney disease with stage 1 through stage 4 chronic kidney disease, or unspecified chronic kidney disease; N18.3 Chronic kidney disease, stage 3 (moderate); D64.9 Anemia, unspecified; E55.9 Vitamin D deficiency, unspecified; Z68.30 Body mass index [BMI] 30.0-30.9, adult; Z79.4 Long term (current) use of insulin
CPT/HCPCS: 36415; 80069; 82728; 83540; 83550; 85014; 85018

== ENCOUNTER → 2020-02-07 | Outpatient (CLI) | payer OTHER ==
[2020-02-07 14:13] LABS: HEMATOCRIT 35.2 % (36.0-47.0); HEMOGLOBIN 11.9 g/dL (12.0-15.5)
[2020-02-07 14:25] LABS: ALBUMIN 3.3 g/dL (3.4-5.0); CALCIUM 8.8 mg/dL (8.5-10.1); CREATININE 2.2 mg/dL (0.6-1.0); GFR 22.7; PHOSPHORUS 3.9 mg/dL (2.6-4.7)
[2020-02-07 14:38] LABS: POTASSIUM 3.9 mmol/L (3.5-5.1)
[2020-02-08 08:09] LABS: CALCIUM PTH 9.1 mg/dL (8.7-10.3); CREATININE PTH 1.98 mg/dL (0.57-1.00); PTH INTACT 75 pg/mL (15-65)
== END | disposition home or self-care (01) ==
LOC: LAB 13:29
PROVIDERS: ATTEND Nurse Practitioner Adult Health
DX: I12.9 Hypertensive chronic kidney disease with stage 1 through stage 4 chronic kidney disease, or unspecified chronic kidney disease (principal); N18.3 Chronic kidney disease, stage 3 (moderate); E11.22 Type 2 diabetes mellitus with diabetic chronic kidney disease; E11.21 Type 2 diabetes mellitus with diabetic nephropathy; D64.9 Anemia, unspecified; E55.9 Vitamin D deficiency, unspecified; R80.9 Proteinuria, unspecified; Z68.31 Body mass index [BMI] 31.0-31.9, adult; Z79.4 Long term (current) use of insulin
CPT/HCPCS: 36415; 80069; 82728; 83540; 83550; 83970; 85014; 85018

== ENCOUNTER → 2020-03-07 | Outpatient (CLI) | payer OTHER ==
[2020-03-07 16:12] LABS: ALBUMIN 3.3 g/dL (3.4-5.0); CALCIUM 8.8 mg/dL (8.5-10.1); GFR 25.3; PHOSPHORUS 3.4 mg/dL (2.6-4.7); POTASSIUM 3.5 mmol/L (3.5-5.1)
== END | disposition home or self-care (01) ==
LOC: LAB 15:09
PROVIDERS: ATTEND Nurse Practitioner Adult Health
DX: E11.21 Type 2 diabetes mellitus with diabetic nephropathy (principal); I12.9 Hypertensive chronic kidney disease with stage 1 through stage 4 chronic kidney disease, or unspecified chronic kidney disease; N18.3 Chronic kidney disease, stage 3 (moderate); E11.22 Type 2 diabetes mellitus with diabetic chronic kidney disease; E55.9 Vitamin D deficiency, unspecified; D64.9 Anemia, unspecified; R80.9 Proteinuria, unspecified; Z79.4 Long term (current) use of insulin; Z68.31 Body mass index [BMI] 31.0-31.9, adult
CPT/HCPCS: 36415; 80069

== ENCOUNTER → 2020-04-22 | Outpatient (CLI) | payer OTHER ==
[~2020-04-22] MED LIST changes: -PANT40TA5 PO; +PANT40TA6 PO
--- NOTE | 2020-04-22 17:34 | RAD ---
Examination: CT ABDOMEN PELVIS WO CONTRAST History: Reason: LEFT FLANK PAIN, GROSS HEMATURIA / Spl. Instructions: / History: Comparison/Correlation: 01/08/2013 CT abdomen and pelvis without contrast Findings: Axial images of the abdomen and pelvis were obtained without contrast. Sagittal and coronal reformatted images were provided. Mitral annular calcification is present. Calcified granulomas involve the right posterior lung base. Nodular contour of the liver is present. Low-attenuation splenic lesion anteriorly measuring up to 4.4 cm diameter which represents a hemangioma is again seen. Pancreas is normal. Adrenal glands are normal. There is no hydronephrosis. Punctate calculus involving the left renal interpolar region on coronal image 63 and axial image 16 suggested. Right renal anterior interpolar region cyst is benign in appearance and similar to the prior exam. No further follow-up needed. No enlarged abdominal or pelvic lymph nodes. No bowel obstruction. No extraluminal gas. Moderate quantity of stool in the colon noted. Appendix is not delineated. L5-S1 disc space narrowing is present with vacuum phenomenon and concentric disc bulge. Left femoral intramedullary latanya and associated compression screw are present. Impression: No collecting system obstruction. Punctate calculus involving the left renal interpolar calyx suggested. No renal mass identified. Consider further evaluation with contrast-enhanced CT for more definitive assessment of the collecting system. PQRS Compliance Statement: One or more of the following individualized dose reduction techniques were utilized for this examination: 1. Automated exposure control 2. Adjustment of the mA and/or kV according to patient size 3. Use of iterative reconstruction technique Electronically signed by: Munir Mantilla MD (04/22/2020 5:31 PM) [id number]
== END | disposition home or self-care (01) ==
LOC: CT 12:52
PROVIDERS: ATTEND Family Medicine
DX: N20.0 Calculus of kidney (principal); I34.0 Nonrheumatic mitral (valve) insufficiency; R31.0 Gross hematuria; K75.3 Granulomatous hepatitis, not elsewhere classified; M48.07 Spinal stenosis, lumbosacral region
CPT/HCPCS: 74176

== ENCOUNTER → 2020-05-07 | Outpatient (CLI) | payer OTHER ==
[2020-05-07 13:12] LABS: ALBUMIN 3.4 g/dL (3.4-5.0); CALCIUM 8.4 mg/dL (8.5-10.1); CREATININE 1.9 mg/dL (0.6-1.0); GFR 26.9; PHOSPHORUS 3.4 mg/dL (2.6-4.7); POTASSIUM 3.5 mmol/L (3.5-5.1)
[2020-05-07 13:18] LABS: HEMATOCRIT 32.8 % (36.0-47.0)
[2020-05-07 16:14] LABS: CREATININE,RANDOM URINE 80.6 mg/dL (Not Establ.)
[2020-05-08 02:07] LABS: MICROALB RD UR 1193.4 ug/mL (Not Estab.)
[2020-05-10 16:07] LABS: CALCIUM PTH 8.7 mg/dL (8.7-10.3); CREATININE PTH 1.74 mg/dL (0.57-1.00); PTH INTACT 154 pg/mL (15-65)
== END ==
LOC: LAB 12:03
PROVIDERS: ATTEND Nurse Practitioner Adult Health
DX: E11.21 Type 2 diabetes mellitus with diabetic nephropathy (principal); E11.22 Type 2 diabetes mellitus with diabetic chronic kidney disease; I12.9 Hypertensive chronic kidney disease with stage 1 through stage 4 chronic kidney disease, or unspecified chronic kidney disease; N18.30 Chronic kidney disease, stage 3 unspecified; D64.9 Anemia, unspecified; E55.9 Vitamin D deficiency, unspecified; R80.9 Proteinuria, unspecified; Z79.4 Long term (current) use of insulin; Z68.31 Body mass index [BMI] 31.0-31.9, adult
CPT/HCPCS: 36415; 80069; 82043; 82306; 82570; 82728; 83540; 83550; 83970; 84156; 85014; 85018

== ENCOUNTER → 2020-06-06 | Outpatient (CLI) | payer OTHER ==
[2020-06-06 16:03] LABS: ALBUMIN 3.4 g/dL (3.4-5.0); CALCIUM 9.2 mg/dL (8.5-10.1); CREATININE 1.9 mg/dL (0.6-1.0); GFR 26.9; POTASSIUM 3.2 mmol/L (3.5-5.1)
[2020-06-06 20:15] LABS: CREATININE,RANDOM URINE 122.8 mg/dL (Not Establ.)
[2020-06-07 08:12] LABS: MICROALB RD UR 2485.6 ug/mL (Not Estab.)
== END ==
LOC: LAB 14:30
PROVIDERS: ATTEND Nurse Practitioner Adult Health
DX: E11.21 Type 2 diabetes mellitus with diabetic nephropathy (principal); E11.22 Type 2 diabetes mellitus with diabetic chronic kidney disease; I12.9 Hypertensive chronic kidney disease with stage 1 through stage 4 chronic kidney disease, or unspecified chronic kidney disease; N18.30 Chronic kidney disease, stage 3 unspecified; D64.9 Anemia, unspecified; E55.9 Vitamin D deficiency, unspecified; R80.9 Proteinuria, unspecified; Z68.31 Body mass index [BMI] 31.0-31.9, adult; Z79.4 Long term (current) use of insulin
CPT/HCPCS: 36415; 80069; 82043; 82570; 84156

== ENCOUNTER → 2020-06-17 | Outpatient (CLI) | payer OTHER | LOC: LAB 15:27 | PROVIDERS: ATTEND Nurse Practitioner Adult Health | DX: I12.9 Hypertensive chronic kidney disease with stage 1 through stage 4 chronic kidney disease, or unspecified chronic kidney disease (principal) | CPT/HCPCS: 36415; 84132 ==

== ENCOUNTER → 2020-09-04 | Outpatient (CLI) | payer OTHER ==
[2020-09-04 12:20] LABS: HEMATOCRIT 33.9 % (36.0-47.0); HEMOGLOBIN 11.2 g/dL (12.0-15.5)
[2020-09-04 12:42] LABS: ALBUMIN 3.6 g/dL (3.4-5.0); CALCIUM 9.6 mg/dL (8.5-10.1); CREATININE 2.3 mg/dL (0.6-1.0); GFR 21.5; PHOSPHORUS 5.1 mg/dL (2.6-4.7); POTASSIUM 4.6 mmol/L (3.5-5.1)
[2020-09-05 00:10] LABS: CALCIUM PTH 10.2 mg/dL (8.7-10.3); CREATININE PTH 2.17 mg/dL (0.57-1.00); PTH INTACT 32 pg/mL (15-65)
== END ==
LOC: LAB 09:09
PROVIDERS: ATTEND Nurse Practitioner Adult Health
DX: E11.21 Type 2 diabetes mellitus with diabetic nephropathy (principal); I12.9 Hypertensive chronic kidney disease with stage 1 through stage 4 chronic kidney disease, or unspecified chronic kidney disease; N18.30 Chronic kidney disease, stage 3 unspecified; D64.9 Anemia, unspecified; E55.9 Vitamin D deficiency, unspecified; R80.9 Proteinuria, unspecified; Z68.31 Body mass index [BMI] 31.0-31.9, adult; Z79.4 Long term (current) use of insulin
CPT/HCPCS: 36415; 80069; 83970; 85014; 85018